=== PATIENT | male | born 2005 | race Caucasian/White ===

== ENCOUNTER → 2024-03-23 07:41 | Outpatient (REF) | payer BC, SELFPAY ==
[2024-03-23 10:25] LABS: ALT (SGPT) 179 U/L (0-50); AST (SGOT) 74 U/L (17-59); Albumin 4.7 g/dl (3.5-5.0); Alkaline Phosphatase 62 U/L (38-126); Direct Bilirubin 0.5 mg/dl (0.0-0.4); Total Bilirubin 0.9 mg/dl (0.2-1.3); Total Protein 7.4 g/dl (6.3-8.2)
== END ==
LOC: HWLAB 07:41
PROVIDERS: ATTENDING PHYSICIAN Family Medicine
DX: K76.0 Fatty (change of) liver, not elsewhere classified (principal)
CPT/HCPCS: 36415; 80076

== ENCOUNTER → 2024-04-29 10:40 | Outpatient (REF) | payer BC, SELFPAY | LOC: MRI 3T 10:40 | PROVIDERS: ATTENDING PHYSICIAN Physician Assistant Surgical; FAMILY PHYSICIAN Family Medicine | DX: M79.671 Pain in right foot (principal); M25.571 Pain in right ankle and joints of right foot | CPT/HCPCS: 73718; 73721 ==

== ENCOUNTER → 2024-07-10 08:43 | Outpatient (REF) | payer BC, SELFPAY | LOC: HWRAD 08:43 | PROVIDERS: ATTENDING PHYSICIAN Family Medicine; REFERRING PHYSICIAN Internal Medicine Rheumatology | DX: R31.9 Hematuria, unspecified (principal) | CPT/HCPCS: 76770 ==

== ENCOUNTER → 2024-07-25 09:27 | Outpatient (REF) | payer BC, SELFPAY ==
[2024-07-25 13:02] LABS: ALT (SGPT) 61 U/L (0-50); AST (SGOT) 40 U/L (17-59); Albumin 4.7 g/dl (3.5-5.0); Alkaline Phosphatase 44 U/L (38-126); Direct Bilirubin 0.3 mg/dl (0.0-0.4); Total Bilirubin 1.1 mg/dl (0.2-1.3); Total Protein 7.4 g/dl (6.3-8.2)
== END ==
LOC: HWLAB 09:27
PROVIDERS: ATTENDING PHYSICIAN Family Medicine
DX: B17.9 Acute viral hepatitis, unspecified (principal)
CPT/HCPCS: 36415; 80076

== ENCOUNTER 2024-10-29 16:51 | Outpatient (RCR) | payer BC, SELFPAY | END 2024-10-29 23:59 | disposition home or self-care (01) | LOC: RPT 16:51 | PROVIDERS: ATTENDING PHYSICIAN Family Medicine | DX: M25.571 Pain in right ankle and joints of right foot (principal); Z73.6 Limitation of activities due to disability; S93.401D Sprain of unspecified ligament of right ankle, subsequent encounter | CPT/HCPCS: 97110; 97112; 97162 ==

== ENCOUNTER → 2024-12-13 09:46 | Outpatient (REF) | payer BC, SELFPAY ==
[2024-12-13 13:13] LABS: ALT (SGPT) 158 U/L (0-50); AST (SGOT) 78 U/L (17-59); Albumin 4.4 g/dl (3.5-5.0); Alkaline Phosphatase 69 U/L (38-126); Blood Urea Nitrogen 17 mg/dl (9-20); Calcium 10.1 mg/dl (8.4-10.2); Carbon Dioxide 33 mmol/L (22-30); Chloride 103 mmol/L (98-107); Glucose 96 mg/dl (70-99); HDL Cholesterol 65 mg/dl; LDL Cholesterol, Calculated 73 mg/dl; Potassium 5.1 mmol/L (3.5-5.1); Sodium 141 mmol/L (135-145); Total Bilirubin 0.8 mg/dl (0.2-1.3); Total Cholesterol 157 mg/dl (50-199); Total Protein 7.4 g/dl (6.3-8.2); Triglyceride 97 mg/dl (10-149); Very Low Density Lipoprotein 19 mg/dl (0-30); eGFR > 60.00
[2024-12-13 13:14] LABS: Hemoglobin 16.6 g/dL (13.0-18.0); Mean Corp Hgb Conc. 34.6 g/dL (33.0-37.0); Mean Corpuscular Hgb 32.4 pg (27.0-31.0); Mean Corpuscular Volume 93.6 fL (80.0-94.0); Mean Platelet Volume 10.1 fL (7.4-10.4); Platelet Count 263 10^3/uL (130-400); Red Blood Cell Count 5.13 10^6/uL (4.70-6.10); Red Cell Dist. Width 12.1 % (11.5-14.5); White Blood Cell Count 4.8 10^3/uL (4.8-10.8)
[2024-12-13 13:15] LABS: C-Reactive Protein < 5.00 mg/L (0.0-10.00)
[2024-12-13 13:28] LABS: % Basophils 0.6 % (0-2); % Eosinophils 1.9 % (0-6); % Lymphocytes 53.7 % (20.5-51.1); % Monocytes 11.7 % (1.7-9.3); % Neutrophils 32.1 % (42.2-75.2); Absolute Eosinophils 0.1 10^3/uL (0-0.7); Absolute Lymphocytes 2.6 10^3/uL (1.2-3.4); Absolute Monocytes 0.6 10^3/uL (0.1-0.6); Absolute Neutrophils 1.5 10^3/uL (1.4-6.5); Nucleated Red Blood Cells % 0 % (-)
[2024-12-13 13:45] LABS: TSH 0.91 uIU/ml (0.47-4.68)
== END ==
LOC: HWLAB 09:46
PROVIDERS: ATTENDING PHYSICIAN Internal Medicine Rheumatology; FAMILY PHYSICIAN Family Medicine
DX: E03.9 Hypothyroidism, unspecified (principal); E55.9 Vitamin D deficiency, unspecified; H20.9 Unspecified iridocyclitis; R94.5 Abnormal results of liver function studies; Z11.1 Encounter for screening for respiratory tuberculosis; Z11.59 Encounter for screening for other viral diseases; Z79.899 Other long term (current) drug therapy; I10 Essential (primary) hypertension; R53.83 Other fatigue; E78.5 Hyperlipidemia, unspecified; E66.01 Morbid (severe) obesity due to excess calories
CPT/HCPCS: 36415; 80053; 80061; 84443; 85025; 86140

== ENCOUNTER → 2025-04-10 09:09 | Outpatient (REF) | payer OTHER, SELFPAY | LOC: OHS 09:09 | PROVIDERS: ATTENDING PHYSICIAN Nurse Practitioner Family | DX: Z23 Encounter for immunization (principal) | CPT/HCPCS: 36415; 86480; 86706 ==